=== PATIENT | female | born 1945 | race African-American/Black ===

== ENCOUNTER 2017-01-18 22:40 | Inpatient (IN) | payer OTHER ==
[~2017-01-18] VITALS: Ht 172.7 cm; Wt 126.6 kg
--- NOTE | ~2017-01-18 | EKG ---
[address] [address] [facility] [address] ELECTROCARDIOGRAM REPORT Name: DAMIANMORGAN AZEVEDO Room #: 431-P ADM IN M.R.#: [id number] Admission: 01/19/17 Attend Phys: Paul Osorio Discharge: Date of : 41 Report #: [id number] THIS REPORT FOR: //name// [facility] ED Test Date: 2017-01-18 Test Time: 23:15:53 Pat Name: MORGAN DAMIAN Department: Room: [facility] Gender: F Cable Television Installer: neville : 1945 Requested By: Juan Stark Order Number: [id number] MD: Maldonado Curiel Measurements Intervals [place] Rate: 84 P: 26 [place]: 193 QRS: 18 QRSD: 88 T: -2 QT: 347 QTc: 411 Interpretive Statements Sinus rhythm Abnormal R-wave progression, early transition Compared to ECG 09/14/2016 07:18:52 T-wave abnormality no longer present Electronically Signed On 01-19-2017 7:44:23 CDT by Maldonado Curiel [email or web address] <ELECTRONICALLY SIGNED> By: Maldonado Curiel MD, [facility] 01/19/17 0744 2315 2315 Maldonado Curiel MD, [facility] /EPI
--- NOTE | ~2017-01-18 | HC ---
[facility] [address] [place] [address] CONSULTATION Name: MORGAN DAMIAN Room #: 431-P ADM IN M.R.#: [id number] Admission: 01/19/17 Attend Phys: Daniel Cade MD Discharge: Date of : 41 Report #: [id number] THIS REPORT FOR: //name// CC: Dr. Mary Villafana MD REASON FOR CONSULTATION: Elevated total protein. 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 According to the patient it did not show much of anything, so I do not know exactly what that means. She had been followed and I believe that protein was found to have been elevated, but because of painful bone marrow biopsy in the past had declined further evaluation. At that time, she was not sure if she would take chemotherapy, she had several friends that have had difficulties with that. Recently, she had been in the hospital here, had been home, was getting weakened and then came back up here for reevaluation. The patient at this time says she has rare headache. 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 She gets around at home though is quite slow and weakened. Her washing machine is on a differentr level of her house, she has someone help with her washing . She had been trending down, plans to move back to [place]. No new constipation or diarrhea. She said that she tried losing weight. She thinks she had lost maybe 30 pounds, but she is not sure. No skin rashes. No ankle swelling. PAST MEDICAL HISTORY: Notable for what may have been an MGUS, history of gastric ulcer, hypertension, B12 deficiency, Macias's palsy question, hyperlipidemia, Alport syndrome, also eye surgery for retinal detachment, thyroid nodule, laparoscopic cholecystectomy, the bone marrow biopsy as mentioned before. ALLERGIES: She has had trouble with the PENICILLIN before. FAMILY HISTORY: Her mother and father said like the mother had a stroke at an older age, two brothers, 1 had a heart attack, one sister, two children sounds like they are both overweight, may be one has diabetes. SOCIAL HISTORY: As I mentioned, the patient had worked in finance and accounting, at [employer] for about 30 years, enjoyed her work down there. I do not believe she is a smoker or drinker, but we will have to check. [address] [address] CONSULTATION Name: MORGAN DAMIAN Room #: 431-P [facility] IN .R.#: [id number] Admission: 01/19/17 Attend Phys: Daniel Cade MD Discharge: Date of : 41 Report #: [id number] LABORATORY DATA: Here lab shows that her potassium is 3.2, BUN 22, creatinine 1.6, today's is pending post-hydration. Liver functions normal. Calcium had been 12.5, was 10.9 here, had been 8.7 back in August, magnesium low at 1.3, total protein had been 12.7, back in August had been 8.5, albumin 2.5. Iron levels are ordered and pending. Serum protein electrophoresis ordered and pending. White count on admission here was 8, hemoglobin 9.7, had been 10.9 back in August, 12.3 back in early August, MCV 91.8, stable, RDW 15. Platelet 144, had been about this range back in August. Differential nonacute. Note that retic quantitative IgA, IgG, IgM are pending. SIFE is ordered and pending, ferritin is pending; B12 and folate are pending, intact PTH pending, vitamin D pending, serum free light chain ratio pending. Urine does show 1+ protein. Note that I also ordered for a spot urine creatinine to protein ratio. RADIOLOGIC STUDIES: Include a CT head with contrast done back in August that did not reveal any lytic changes. The patient reports a recent MRI that did not show any marrow, but that it did show some nonspecific white matter changes. CT abdomen and pelvis back in August showed mural thickening, no bony lesions described. ____ MGUS, skeletal survey has been ordered. MEDICATIONS: At this time, currently include calcium carbonate daily, loratadine 10 mg daily, losartan 50 mg daily, famotidine 20 b.i.d., metoprolol 100 daily, aspirin 81 daily, vitamin E 400 daily, amlodipine 10 daily, ceftriaxone 1 gram daily, Zofran p.r.n., IV fluids at an appropriate rate. PHYSICAL EXAMINATION: VITAL SIGNS: Height is 5 feet 8, 172.7 cm, weight 279.9 pounds, 162.96 kilograms. Blood pressure is 141/70, O2 sat 97% on room air, respirations 23, pulse 89, afebrile. MOOD: The patient is alert and pleasant and conversant. NEUROLOGIC: The patient does have some slight left facial drooping and trouble speaking, though she cannot and she states her tongue moves a little bit not off to the side, mostly drips to the left. Oropharynx clear. LYMPHATICS: No enlarged lymph nodes in the supraclavicular, cervical, axillary or inguinal region. ABDOMEN: Obese. EXTREMITIES: Maybe has trace edema. ASSESSMENT AND PLAN: 1. MGUS protein with recent total protein increase. I have talked with the patient, she is agreeable with bone marrow biopsy with conscious sedation; we will order this. We will also check skeletal survey. We will also check serum free light chain ratio, SIFE another test to assess paraproteinemia quantity. 2. Anemia. We will check iron, erythropoietin, await bone marrow results. 3. Hypertension meds. [address] [address] CONSULTATION Name: MORGAN DAMIAN Room #: 431-P [facility] IN M.R.#: [id number] Admission: 01/19/17 Attend Phys: Daniel Cade MD Discharge: Date of : 41 Report #: [id number] 4. Hypercalcemia, hydration, will also give Aredia. 5. Lipids may need to be on statins. 6. Speech pattern difficulty and neurologic event. It sounds like it has been stable for about a year though the patient says it comes and goes. We will defer to others. <ELECTRONICALLY SIGNED> By: Nicho Haji MD 01/20/17 0714 0935 Nicho Haji MD /nt
--- NOTE | ~2017-01-18 | H ---
[facility] [address] [place] [address] HISTORY AND PHYSICAL Name: MORGAN DAMIAN Room #: 431-P [facility] IN M.R.#: [id number] Admission: 01/19/17 Attend Phys: Daniel Cade MD Discharge: 01/21/17 Date of : 41 Report #: [id number] THIS REPORT FOR: //name// CC: Paul SOLARES DATE OF ADMISSION: 01/19/2017. ATTENDING PHYSICIAN: Dr. Cade. PRIMARY CARE PHYSICIAN: Dr. Nohelia Solares in [place], [place]. CHIEF COMPLAINT: Weakness. HISTORY OF PRESENT ILLNESS: The patient is a 71-year-old -[place] female who was brought in to the ER by her son with complaints of generalized weakness as well as dizziness, nausea, and near fainting She was also reporting some white vaginal discharge, she was evaluated in the ER and did have some abnormal labs, but mainly she was not felt safe to discharge to home because they do not think she could care for herself and it sounds like she has been living on her own in the [place], [place]. Has had some recent decline and her son went and picked her up today to bring her to [place] to be evaluated here as a second opinion after recent hospitalization at [facility] but also to end up getting her placed in a assisted here and recent records from [facility] do show that she has had some recent lab changes including anemia. According to their notes, she has positive M spike on a prior evaluation. She has had a bone marrow biopsy in 2008 and was told she does not have any cancer after these recent blood changes, they did recommend repeating to bone marrow biopsy. She has told them at that time, she did not want to have it done because it hurt too bad last time and that she likely would not undergoing any chemotherapy if she did have cancer any way, she is now more agreeable to have this done. She is currently resting comfortably in no acute distress. PAST MEDICAL HISTORY: Anemia, B12 deficiency, gastric ulcer, hypertension, hyperlipidemia, Macias's palsy, and Alport syndrome. PAST SURGICAL HISTORY: Eye surgery for retinal detachment, thyroid nodule removal, and laparoscopic cholecystectomy, bone marrow biopsy. ALLERGIES: PENICILLIN, UNKNOWN REACTION. HOME MEDICATIONS: Cetirizine 10 mg p.o. daily p.r.n., metoprolol 100 mg daily, amlodipine 10 mg daily, losartan 50 mg daily, aspirin 81 mg daily, calcium with vitamin D 1 tab daily, Flonase 2 sprays daily, ranitidine 150 mg b.i.d., and vitamin E 400 units daily. [address] [address] HISTORY AND PHYSICAL Name: MORGAN DAMIAN Room #: 431-P [facility] IN M.R.#: [id number] Admission: 01/19/17 Attend Phys: Daniel Cade MD Discharge: 01/21/17 Date of : 41 Report #: [id number] SOCIAL HISTORY: The patient had been living alone and [place], [place]. She is a . She is a never smoker, denies any alcohol use. After her recent hospitalization at [facility] she has been using home health for physical therapy and has been getting around using a cane or a walker. FAMILY HISTORY: Negative for any cancers, her mother had stroke. REVIEW OF SYSTEMS: The patient does report that she has had blood in her urine, almost all of her life and related to her history of Alport syndrome. She as far as we know her anemia is recent she was just here for her gallbladder surgery in August and had a hemoglobin at that time was 10.9, but it was normal in 2005 according to [facility] records, her creatinine in August was 1.1 and her calcium level in August was 8.7. She denies any history of coronary artery disease. She denies any recent chest pain or shortness of breath. Denies any history of diabetes. All other 12-point review of systems was reviewed with the patient, otherwise negative unless stated in the HPI. PHYSICAL EXAMINATION: GENERAL: The patient is an alert, obese female in no acute distress. VITAL SIGNS: Temperature is 37.0, heart rate 93, respirations 16, blood pressure is 128/93, oxygen 98% on room air. HEENT: PERRLA. Sclerae is nonicteric. She does have right-sided facial droop. Oral mucosa is pink and moist. NECK: Supple, no JVD noted. CARDIOVASCULAR: Normal S1, S2. No murmurs, rubs or gallops. RESPIRATORY: Breath sounds are clear bilaterally, diminished in both bases. Breathing is nonlabored. ABDOMEN: Obese, soft, nontender, nondistended with positive bowel sounds. VASCULAR: Trace bilateral lower extremity edema. Pedal pulses are 2+. NEUROLOGIC: The patient is alert and oriented x 3. Speech is clear. She does have the right-sided facial droop which causes some dysarthria, but her speech is still easily to understand. Muscle strength is 5/5 in all 4 extremities. No focal weakness noted. I did not have her ambulate. LABORATORY DATA AND DIAGNOSTICS: WBC is 8.0, hemoglobin 9.7, platelets 144. Sodium 135, potassium 3.2, BUN 22, creatinine 1.6, glucose 94. Magnesium 1.3. LFTs are within normal limits. Troponins negative, protein levels 12.7 and albumin is 2.5. UA showed 3+ blood, 2+ leukocyte esterase, few wbc's and moderate bacteria. CT of the head shows mild atrophy and minimally microvascular changes, no acute intracranial hemorrhage, mass affect or midline shift, no growth hydrocephalus and was negative. ASSESSMENT AND PLAN: 1. Generalized weakness. The patient does have multiple lab abnormalities which may be contributing to her weakness. She does have hypercalcemia. Actually her [facility] [address] [place] [place] [address] HISTORY AND PHYSICAL Name: MORGAN DAMIAN Room #: 431-P [facility] IN M.R.#: [id number] Admission: 01/19/17 Attend Phys: Daniel Cade MD Discharge: 01/21/17 Date of : 41 Report #: [id number] corrected calcium is 12.1. She also has elevated protein and anemia with some acute kidney injury. This is all concerning for underlying blood disorder with possibly multiple myeloma. She does see me she does have known . We will go ahead and consult on oncology for possible bone marrow biopsy to further evaluate. We will go ahead and check SPEP and UPEP. She is going to have a bone marrow biopsy at this time. Check PTH level as well as a vitamin D and a B12, TSH levels. 2. Urinary tract infection. This also may be contributing her weakness. Urine will be sent for culture. We will start Rocephin. 3. Hypokalemia, hypomagnesemia. This has been replaced. Follow labs. 4. Acute kidney injury. Her last known creatinine was 1.1 in August. We will gently hydrate and follow labs. 5. Dizziness and near syncope may be related to UTI versus underlying blood disorder. CT of the head was negative. 6. Deep venous thrombosis prophylaxis, place sequential compression devices. We will continue to follow the patient closely throughout the hospitalization and make changes based on clinical status. <ELECTRONICALLY SIGNED> By: WENDY Serrano 01/23/17 0604 0655 0756 WENDY Serrano /nt
--- NOTE | ~2017-01-18 | S ---
[facility] [address] [place] [address] SURGICAL PATH RPT PROCEDURE Name: MORGAN DAMIAN Room #: 431-P [facility] IN .R.#: [id number] Admission: 01/19/17 Date of : 41 Discharge: 01/21/17 Report #: [id number] Path Case #: [id number] PATHOLOGY REPORT COLLECTION DATE: 01/19/2017 RECEIVED DATE: 01/19/2017 SUBMITTING PHYS: Dr. Daniel Cade OTHER PHYS: Dr. Nicho Haji SPECIMEN(S) RECEIVED: A.Bone marrow, biopsy B.Bone marrow, clot and/or particle prep C.Bone marrow, aspirate smears D.Peripheral smear * * * * * * * * * * * * FINAL DIAGNOSIS: Bone marrow aspirate, biopsy, cell clot and peripheral blood: - Peripheral blood with moderate normocytic anemia and prominent rouleaux. - Hypercellular bone marrow with diffuse involvement by a plasma cell dyscrasia (90% kappa restricted plasma cells by immunohistochemical staining). See comment. SYNOPTIC CANCER STAGING REPORT Tumor Site: Bone marrow SPECIMEN Specimen: Peripheral blood smear Bone marrow aspiration Bone marrow aspirate clot (cell block) Bone marrow core (trephine) biopsy Bone marrow core touch preparation (imprint) Procedure: Aspiration Aspiration Site: Not specified Biopsy Biopsy Site: Not specified TUMOR Histologic Type (Based on the 2008 WHO Classification): Mature B-cell Neoplasms Other: plasma cell dyscrasia SPECIAL STUDIES Immunophenotyping (flow cytometry and / or immunohistochemistry): Performed, see separate report: flow cytometry [facility] [id number] Cytogenetic Studies: Performed, see separate report: [facility] [id number] [address] [address] SURGICAL PATH RPT PROCEDURE Name: MORGAN DAMIAN Room #: 431-P [facility] IN [facility]#: [id number] Admission: 01/19/17 Date of : 41 Discharge: 01/21/17 Report #: [id number] Path Case #: [id number] Fluorescence in situ Hybridization: Performed, see separate report: [facility] [id number] COMMENT: Overall, the bone marrow is hypercellular for the patient's age with diffuse interstitial involvement by plasma cell dyscrasia. There are approximately 90% kappa restricted plasma cells by immunohistochemical staining. Correlation with clinical history, additional laboratory data and radiographic findings is required to determine the extent of the disease process and to exclude the possibility of a plasmacytoma. Correlation with cytogenetics and FISH analysis is also recommended. A Congo red stain is pending and will be reported as an addendum. PATHOLOGIST: Roxanna Mcgregor M.D. REPORT ELECTRONICALLY SIGNED BY: Roxanna Mcgregor M.D. DATE/TIME: 01/24/2017 22:34 * * * * * * * * * * * * MICROSCOPIC DESCRIPTION: CBC data (01/19/2017): WBC 8,000/uL, RBC 3.17, hemoglobin 9.7 g/dL, hematocrit 29.1%, MCV 91.8 fL, MCH 30.5 pg, MCHC 33.2 g/dL, RDW 15.1%, and platelet count 144,000/uL. Manual white blood cell differential: segs 38%, lymphs 51%, monos 11%. Peripheral Blood Smear: Cytomorphological examination of the Cedeño's stained peripheral blood smear confirms the provided data. Red blood cells show moderate normocytic anemia with mild anisopoikilocytosis. No significant poikilocytosis is identified. Rouleaux is noted. White blood cells are predominantly lymphocytes that are small, round, and mature appearing with condensed chromatin and scant cytoplasm with admixed large granular lymphocytes. While occasional lymphocytes appear plasmacytoid, no definitive plasma cells are seen on scanning. Granulocytes are predominantly segmented neutrophils and are without significant dyspoiesis or significant left shift. Monocytes are mature. Platelets are adequate in number and mainly normal in morphology with rare larger platelets noted. Aspirate Smears: Cytomorphological examination of the Cedeño's stained aspirate smears and touch imprints show no intact spicules present. Numerous plasma cells are identified. Background red blood cells show rouleaux. The myeloid to erythroid ratio, myeloid maturation, and erythroid maturation cannot be accurately evaluated. In a 300 cell differential, there are less than 1% blasts (no Pat rods are seen), 14% more differentiated myeloids, 3% erythroid precursors, 19% lymphocytes and 64% plasma cells. Only a rare mainly normal megakaryocyte is noted on scanning. No lymphoid aggregates or [facility] [address] [place] [address] SURGICAL PATH RPT PROCEDURE Name: MORGAN DAMIAN Room #: 431-P [facility] IN M.R.#: [id number] Admission: 01/19/17 Date of : 41 Discharge: 01/21/17 Report #: [id number] Path Case #: [id number] markedly atypical lymphoid cells are identified. Plasma cells are atypical with variable cell sizes, scant deeply basophilic cytoplasm and variably condensed nuclear chromatin. Iron stain of the aspirate smear shows 0/4+ iron positivity. No ringed sideroblasts are identified. Core Biopsy and Cell Clot: The decalcified bone marrow core biopsy is adequate. Significant aspiration artifact is noted. The bone marrow is hypercellular with an overall cellularity of approximately 80%. The bone marrow is diffusely infiltrated by atypical plasma cells. Background trilineage hematopoiesis is markedly decreased. The myeloid to erythroid ratio, myeloid maturation, and erythroid maturation cannot be accurately evaluated. No lymphoid aggregates or markedly atypical lymphoid cells are seen. Bony trabeculae are unremarkable. Blood vessels are focally thickened. The cell clot shows rare cellular spicules present that are composed predominantly of plasma cells. Iron stain of the cell clot (Block B1) shows 1/4+ iron positivity with rare spicules present. To further quantify and characterize the plasma cells and to identify cells in a tissue architectural context, properly controlled immunohistochemical stains are performed. Block A1: [id number] approximately 90% plasma cells Ulmer and lambda in situ hybridization-plasma cells are kappa restricted Iron-2/4+ iron positivity Congo red-pending. Block B1: [id number] approximately 90% plasma cells Ulmer and lambda in situ hybridization-plasma cells are kappa restricted. Flow Cytometry: Flow cytometric immunophenotypic analysis was performed at [facility]. The diagnosis is "monoclonal plasma cells (15.8% of total cells), consistent with a plasma cell neoplasm". There are 28.4% lymphocytes. Of the lymphocytes, there are 90% T-cells with a CD4/CD8 ratio of 1.1 and no aberrant T-cell antigen expression and 4% polyclonal B-cells (kappa lambda ratio of 1.2). There are 0.5% CD34 positive cells (blasts) that are not increased. There are 15.8% plasma cells that show cytoplasmic kappa light chain restriction and show: CD19 neg, CD38 jacob, CD45 neg, CD56 pos, and CD138 mod. Flow cytometry findings are consistent with a plasma cell neoplasm. No immunophenotypic evidence of a lymphoproliferative disorder, acute leukemia, or increase in blasts, or increased plasma cells is identified. Please see separate flow cytometry report from [facility] ([id number]). Cytogenetics Analysis: Cytogenetic chromosomal analysis is pending at [place] [address] SURGICAL PATH RPT PROCEDURE Name: MORGAN DAMIAN Room #: 431-P DIS IN M.R.#: [id number] Admission: 01/19/17 Date of : 41 Discharge: 01/21/17 Report #: [id number] Path Case #: [id number] [facility] ([id number]). FISH analysis for an MM-MGUS FISH panel is pending at [facility] ([id number]). GROSS PATHOLOGY: A. Received in formalin labeled "Morgan Damian, BM biopsy," is a single needle core of ayon bone, measuring 0.9 cm in length and 0.2 cm in diameter. The specimen is submitted entirely in cassette A1, following decalcification. B. Received in formalin labeled "Morgan Damian, BM aspirate (clot)," is blood coagulum, measuring 2.8 x 2.0 x 0.2 cm in aggregate dimensions. The specimen is submitted entirely in cassette B1. (CAA; 01/20/2017) CLINICAL HISTORY: Anemia, MGUS 71-year-old woman with anemia and monoclonal gammopathy INITIAL CPT CODE(S): A; 08575, 38735, 21566, 95245, 36776, 52564, 78846 B; 02897, 25403, 61698, 29353, 69259 C; 40413, 85740 D; 01190 Professional services performed by [facility] at [address] [place] [address] [address], [place] [address] Technical services performed by [facility] at [address] [place] [address], [address], [place] [address]. Nohelia Villafana [facility] [address] [place] [address] PHONE: [phone] DIRECTOR: Cisco Andrews M.D. * * * END OF REPORT * * *
[~2017-01-18 22:40] MED LIST: 24HOUR ALLERGY10 MG PO; ALEVE220 MG PO; AMLODIPINE BESY10 MG PO; ASPIR 8181 MG PO; CALCIUM 600 +1 EAC1 PO; CHLORTHALIDONE25 MG PO; CIPRO500 MG PO; CORICIDIN HBP1 EAC1 PO; COZAAR 50 MG TA50 M2 PO; FLAGYL500 MG PO; FLUTICASONE PRO16 GM NASAL; IBUPROFEN 200200 M1 PO; TOPROL XL100 MG PO; VITAMIN E400 UNIT PO; ZANTAC 150MG T150 MG PO
[2017-01-18 22:44] VITALS: BP 128/93
[2017-01-19 00:01] LABS: URINE BILIRUBIN NEGATIVE (Negative); URINE BLOOD 3+ (Negative); URINE COLOR YELLOW; URINE GLUCOSE-RANDOM* NEGATIVE (Negative); URINE KETONES NEGATIVE (Negative); URINE LEUKOCYTES-REFLEX 2+ (Negative); URINE PROTEIN (DIPSTICK) 1+ (Negative); URINE SPECIFIC GRAVITY 1.025 (1.003-1.035); URINE UROBILINOGEN 0.2 E.U./dl (0.2-1.0)
[2017-01-19 00:06] LABS: ANION GAP 5 mmol/L (7-16); BUN 22 mg/dL (7-18); CALCIUM 10.9 mg/dL (8.5-10.1); CHLORIDE 102 mmol/L (98-107); CO2 28 mmol/L (21-32); CREATININE 1.6 mg/dL (0.6-1.0); GLUCOSE 94 mg/dL (74-106); POTASSIUM 3.2 mmol/L (3.5-5.1); SODIUM 135 mmol/L (136-145)
[2017-01-19 00:19] LABS: ALBUMIN 2.5 g/dL (3.4-5.0); ALKALINE PHOSPHATASE 40 U/L (46-116); MAGNESIUM 1.3 mg/dL (1.8-2.4); SGOT 14 U/L (15-37); SGPT 9 U/L (30-65); TOTAL BILIRUBIN 0.5 mg/dL (<0.1-1.0); TOTAL PROTEIN 12.7 g/dL (6.4-8.2); TROPONIN-I < 0.04 ng/mL (<0.04-0.07)
[2017-01-19 00:22] LABS: SQUAMOUS >10 Many /LPF (0-3)
[2017-01-19 00:23] LABS: AMORPHOUS URATES Few /LPF (None Seen); CASTS None Seen /LPF (None Seen); URINE RBC 3-10 Few /HPF (0-2); URINE WBC-REFLEX 6-15 Few /HPF (0-5)
[2017-01-19 01:54] LABS: HEMATOCRIT 29.1 % (37.0-47.0); HEMOGLOBIN 9.7 gm/dL (12.0-15.0); MCH 30.5 pg (26.0-34.0); MCHC 33.2 g/dL (28.0-37.0); MCV 91.8 fL (80.0-100.0); RBC 3.17 mil/uL (4.20-5.00); RDW 15.1 % (10.5-14.5)
[2017-01-19 01:57] LABS: MANUAL DIFF YES
[2017-01-19 02:32] VITALS: BP 141/70
[2017-01-19 02:50] LABS: TOTAL CELL COUNT 100
[2017-01-19 02:51] LABS: PLATELET COUNT 144 thou/uL (150-400)
[2017-01-19 10:10] VITALS: BP 132/74
[2017-01-19 11:29] LABS: ABSOLUTE RETIC COUNT 0.0434 10^6/uL; OBSERVED RETIC COUNT 1.59 % (0.6-2.6)
[2017-01-19 11:31] LABS: CALCIUM 9.7 mg/dL (8.5-10.1); CREATININE 1.5 mg/dL (0.6-1.0); MAGNESIUM 1.5 mg/dL (1.8-2.4); POTASSIUM 3.4 mmol/L (3.5-5.1)
[2017-01-19 11:33] LABS: TIBC 172 ug/dL (250-450)
[2017-01-19 11:41] LABS: CALCIUM 9.9 mg/dL (8.5-10.1); CREATININE 1.5 mg/dL (0.6-1.0); PHOSPHORUS 4.5 mg/dL (2.5-4.9)
[2017-01-19 11:48] LABS: FOLIC ACID 4.7 ng/mL (8.6-58.9)
[2017-01-19 12:05] LABS: TSH 1.396 uIU/mL (0.358-3.740)
[2017-01-19 12:15] VITALS: BP 131/73
[2017-01-19 12:36] LABS: % SATURATION 194 % (20-39); IRON 334 ug/dL (50-170); UIBC -162 ug/dL
[2017-01-19 15:35] VITALS: BP 128/79
[2017-01-19 18:30] VITALS: BP 145/85
[2017-01-19 20:00] VITALS: BP 130/74
[2017-01-19 21:07] LABS: IgA < 50 mg/dL (64-422); IgG 7297 mg/dL (700-1600); IgM 8 mg/dL (26-217)
[2017-01-20 03:15] LABS: URINE CREATININE-RANDOM* 80.8 mg/dL (Not Estab.); URINE PROTEIN-RANDOM* 31.2 mg/dL (Not Estab.)
[2017-01-20 07:56] VITALS: BP 146/101
[2017-01-20 12:08] LABS: ERYTHROPOIETIN 53.4 mIU/mL (2.6-18.5)
[2017-01-20 12:25] VITALS: BP 146/101
[2017-01-20 15:06] LABS: KAPPA FREE LIGHT CHAINS 283.9 mg/L (3.30-19.40); KAPPA/LAMBDA RATIO 33.13 (0.26-1.65); LAMBDA FREE LIGHT CHAINS 8.57 mg/L (5.71-26.30)
[2017-01-20 16:21] VITALS: BP 129/64
[2017-01-20 20:00] VITALS: BP 123/70
[2017-01-21 04:31] VITALS: BP 101/75
[2017-01-21 07:34] LABS: ALBUMIN 2.2 g/dL (3.4-5.0); CALCIUM 9.4 mg/dL (8.5-10.1); CREATININE 1.5 mg/dL (0.6-1.0); POTASSIUM 3.8 mmol/L (3.5-5.1); TOTAL BILIRUBIN 0.3 mg/dL (<0.1-1.0); TOTAL PROTEIN 11.2 g/dL (6.4-8.2)
[2017-01-21 08:06] VITALS: BP 117/64
[2017-01-21] MEDS ORDERED: CEFUROXIME500 MG PO (09:15)
[2017-01-23 18:06] LABS: URINE PROTEIN (MG/DL) 33.6 mg/dL (Not Estab.)
[2017-01-24 07:09] LABS: A/G RATIO 0.4 (0.7-1.7); ALBUMIN 3.4 g/dL (2.9-4.4); ALPHA 1 0.3 g/dL (0.0-0.4); ALPHA 2 0.8 g/dL (0.4-1.0); BETA 1.2 g/dL (0.7-1.3); GAMMA 5.6 g/dL (0.4-1.8); M-SPIKE 4.3 g/dL (Not Observed)
== END 2017-01-21 11:00 | disposition home health service (06) | DRG 814 ==
LOC: ER 22:40 → EROBS 01-19 01:52 → 4E 01-19 01:52
PROVIDERS: Emergency Medicine; Hospitalist; Internal Medicine Hematology & Oncology; Nurse Practitioner Acute Care
PROC: 07DR3ZX Extraction of Iliac Bone Marrow, Percutaneous Approach, Diagnostic (ICD-10-PCS; principal; 2017-01-19)
DX: D47.2 Monoclonal gammopathy (principal); E43 Unspecified severe protein-calorie malnutrition; N17.9 Acute kidney failure, unspecified; N39.0 Urinary tract infection, site not specified; Q87.81 Alport syndrome; E78.5 Hyperlipidemia, unspecified; I10 Essential (primary) hypertension; E87.6 Hypokalemia; Z60.2 Problems related to living alone; E83.42 Hypomagnesemia; D64.9 Anemia, unspecified; E83.52 Hypercalcemia; M89.9 Disorder of bone, unspecified; Z90.49 Acquired absence of other specified parts of digestive tract; Z79.82 Long term (current) use of aspirin; Z79.899 Other long term (current) drug therapy; Z88.0 Allergy status to penicillin; Z82.3 Family history of stroke; Z82.49 Family history of ischemic heart disease and other diseases of the circulatory system
CPT/HCPCS: 10183

== ENCOUNTER 2017-01-25 00:41 | Emergency (ER) | payer OTHER ==
[~2017-01-25] VITALS: Ht 172.7 cm; Wt 124.3 kg
--- NOTE | ~2017-01-25 | EKG ---
[address] [address] ELECTROCARDIOGRAM REPORT Name: MORGAN DAMIAN Room #: [facility].#: [id number] Admission: Attend Phys: Discharge: Date of : 41 Report #: [id number] THIS REPORT FOR: //name// [facility] ED Test Date: 2017-01-25 Test Time: 00:50:08 Pat Name: MORGAN DAMIAN Department: Room: Gender: F Brine Supervisor: DEAN : 1945 Requested By: Kyra Smith Order Number: [id number] MD: Measurements Intervals [place] Rate: 74 P: 41 AK: 200 QRS: 30 QRSD: 102 T: 5 QT: 397 QTc: 441 Interpretive Statements Sinus rhythm Borderline T abnormalities, anterior leads Compared to ECG 01/18/2017 23:15:53 T-wave abnormality now present [email or web address] By: 0050 0050 Mikala Bach MD /EPI
[~2017-01-25 00:41] MED LIST changes: +CEFUROXIME500 MG PO
[2017-01-25 01:03] LABS: HEMATOCRIT 25.3 % (37.0-47.0); HEMOGLOBIN 8.5 gm/dL (12.0-15.0); MCH 30.8 pg (26.0-34.0); MCHC 33.7 g/dL (28.0-37.0); MCV 91.4 fL (80.0-100.0); PLATELET COUNT 203 thou/uL (150-400); RBC 2.77 mil/uL (4.20-5.00); RDW 15.2 % (10.5-14.5); WBC 5.6 thou/uL (4.0-11.0)
[2017-01-25 01:04] LABS: MANUAL DIFF YES
[2017-01-25 01:07] LABS: ANION GAP 5 mmol/L (7-16); BUN 18 mg/dL (7-18); CALCIUM 8.3 mg/dL (8.5-10.1); CHLORIDE 102 mmol/L (98-107); CO2 25 mmol/L (21-32); CREATININE 1.3 mg/dL (0.6-1.0); GLUCOSE 92 mg/dL (74-106); SODIUM 132 mmol/L (136-145)
[2017-01-25 01:08] LABS: POTASSIUM 3.7 mmol/L (3.5-5.1)
[2017-01-25 01:15] LABS: TROPONIN-I < 0.04 ng/mL (<0.04-0.07)
[2017-01-25 01:37] LABS: ABSOLUTE NEUTROPHILS 2.4 thou/uL (1.4-8.2); ATYPICAL LYMPHS 2 %; NUCLEATED RBCS 2 /100WBC; TOTAL CELL COUNT 100
== END 2017-01-25 02:24 | disposition home or self-care (01) ==
LOC: ER 00:41
PROVIDERS: Emergency Medicine
DX: R06.00 Dyspnea, unspecified (principal); D64.89 Other specified anemias; I10 Essential (primary) hypertension; Z98.890 Other specified postprocedural states; Z90.49 Acquired absence of other specified parts of digestive tract; Z86.69 Personal history of other diseases of the nervous system and sense organs; Z88.0 Allergy status to penicillin; Z79.82 Long term (current) use of aspirin

== ENCOUNTER 2017-03-02 11:12 | Emergency (ER) | payer OTHER ==
[~2017-03-02] VITALS: Ht 172.7 cm; Wt 117.9 kg
--- NOTE | ~2017-03-02 | EKG ---
[place] [address] [facility] [place] [address] ELECTROCARDIOGRAM REPORT Name: MORGAN DAMIAN Room #: [facility]#: [id number] Admission: 03/02/17 Attend Phys: Discharge: 03/02/17 Date of : 41 Report #: [id number] THIS REPORT FOR: //name// [facility] ED Test Date: 2017-03-02 Test Time: 11:22:26 Pat Name: MOGRAN DAMIAN Department: Room: Gender: F Neighborhood Aide: Wen GOMES : 1945 Requested By: Heriberto Gallardo Order Number: [id number] MD: Maldonado Curiel Measurements Intervals [place] Rate: 66 P: 28 LA: 217 QRS: 9 QRSD: 88 T: -5 QT: 401 QTc: 421 Interpretive Statements Sinus rhythm Borderline prolonged LA interval LVH by voltage Borderline T abnormalities Compared to ECG 01/25/2017 00:50:08 No significant change was found Electronically Signed On 03-03-2017 8:17:58 CDT by Maldonado Curiel [email or web address] <ELECTRONICALLY SIGNED> By: Maldonado Curiel MD, [facility] 03/03/1717 21 21 Maldonado Curiel MD, [facility] /EPI
[2017-03-02 11:31] LABS: HEMATOCRIT 28.2 % (37.0-47.0); HEMOGLOBIN 9.3 gm/dL (12.0-15.0); WBC 6.7 thou/uL (4.0-11.0)
[2017-03-02 11:39] LABS: ANION GAP 7 mmol/L (7-16); BUN 17 mg/dL (7-18); CALCIUM 8.6 mg/dL (8.5-10.1); CHLORIDE 104 mmol/L (98-107); CO2 25 mmol/L (21-32); CREATININE 1.2 mg/dL (0.6-1.0); GLUCOSE 101 mg/dL (74-106); POTASSIUM 3.3 mmol/L (3.5-5.1); SODIUM 136 mmol/L (136-145)
[2017-03-02 11:41] LABS: MCH 30.8 pg (26.0-34.0); MCHC 33.1 g/dL (28.0-37.0); PLATELET COUNT 205 thou/uL (150-400); RBC 3.03 mil/uL (4.20-5.00); RDW 16.3 % (10.5-14.5)
[2017-03-02 11:43] LABS: MANUAL DIFF YES
[2017-03-02 11:53] LABS: ALBUMIN 2.1 g/dL (3.4-5.0); ALKALINE PHOSPHATASE 40 U/L (46-116); MAGNESIUM 1.7 mg/dL (1.8-2.4); NT-PRO BRAIN NAT PEPTIDE 191 pg/mL (<300); SGOT 17 U/L (15-37); SGPT 14 U/L (30-65); TOTAL BILIRUBIN 0.4 mg/dL (<0.1-1.0); TOTAL PROTEIN 10.4 g/dL (6.4-8.2); TROPONIN-I < 0.04 ng/mL (<0.04-0.07)
[2017-03-02 12:31] LABS: URINE BILIRUBIN NEGATIVE (Negative); URINE BLOOD 2+ (Negative); URINE COLOR YELLOW; URINE GLUCOSE-RANDOM* NEGATIVE (Negative); URINE KETONES NEGATIVE (Negative); URINE LEUKOCYTES-REFLEX 1+ (Negative); URINE PROTEIN (DIPSTICK) NEGATIVE (Negative); URINE SPECIFIC GRAVITY 1.015 (1.003-1.035); URINE UROBILINOGEN 0.2 E.U./dl (0.2-1.0)
[2017-03-02 12:34] LABS: ABSOLUTE NEUTROPHILS 1.5 thou/uL (1.4-8.2); METAMYELOCYTES 3 %; TOTAL CELL COUNT 100
[2017-03-02 12:35] LABS: ANISOCYTOSIS 1+; ATYPICAL LYMPHS 2 %
[2017-03-02 12:43] LABS: SQUAMOUS None Seen /LPF (0-3)
[2017-03-02 12:44] LABS: CASTS None Seen /LPF (None Seen); CRYSTALS None Seen /LPF (None Seen); URINE WBC-REFLEX 6-15 Few /HPF (0-5)
[2017-03-02] MEDS ORDERED: KEFLEX500 MG PO (13:38)
[2017-03-02] MEDS ORDERED: ZOFRAN ODT8 MG PO (13:41)
== END 2017-03-02 15:14 | disposition home or self-care (01) ==
LOC: ER 11:12
PROVIDERS: Emergency Medicine
DX: R55 Syncope and collapse (principal); E87.6 Hypokalemia; D64.9 Anemia, unspecified; R11.2 Nausea with vomiting, unspecified; N39.0 Urinary tract infection, site not specified; M19.90 Unspecified osteoarthritis, unspecified site; I10 Essential (primary) hypertension; Z90.49 Acquired absence of other specified parts of digestive tract; Z98.890 Other specified postprocedural states; Z88.0 Allergy status to penicillin

== ENCOUNTER 2017-04-05 12:02 | Inpatient (IN) | payer OTHER ==
[~2017-04-05] VITALS: Ht 172.7 cm; Wt 115.4 kg
--- NOTE | ~2017-04-05 | EKG ---
[address] [place] [address] ELECTROCARDIOGRAM REPORT Name: RICKIEMORGAN Cecelia Room #: 448-P ADM IN M.R.#: [id number] Admission: 04/06/17 Attend Phys: Daniel Cade MD Discharge: Date of : 41 Report #: [id number] THIS REPORT FOR: //name// [facility] ED Test Date: 2017-04-05 Test Time: 12:40:50 Pat Name: MORGAN DAMIAN Department: Room: [facility] Gender: F Communication Center Coordinator: FELIPE : 1945 Requested By: Kyra Smith Order Number: [id number] MD: Maldonado Curiel Measurements Intervals [place] Rate: 76 P: -4 VA: 207 QRS: 19 QRSD: 84 T: -3 QT: 382 QTc: 430 Interpretive Statements Sinus rhythm Abnormal R-wave progression, early transition Compared to ECG 03/02/2017 11:22:26 T-wave abnormality no longer present Electronically Signed On 04-06-2017 17:24:23 CDT by Maldonado Curiel [email or web address] <ELECTRONICALLY SIGNED> By: Maldonado Curiel MD, FACC 04/06/17 1724 1240 1240 Maldonado Curiel MD, [facility] /EPI
--- NOTE | ~2017-04-05 | HC ---
[facility] [address] [place] [address] CONSULTATION Name: MORGAN DAMIAN Room #: 448-P ADM IN M.R.#: [id number] Admission: 04/06/17 Attend Phys: Daniel Cade MD Discharge: Date of : 41 Report #: [id number] THIS REPORT FOR: //name// CC: FAM unknown Daniel Cade DATE OF SERVICE: 04/06/2017 ATTENDING PHYSICIAN: Nicho Haji MD CREDIT CARD CONTROL CLERK: Zaid Fernandez, PhD CLINICAL PRESENTATION: The patient is a 71-year-old -[place] female admitted to the [facility] for evaluation and treatment of rapid heart rate and dizziness. She presented with fatigue and weakness. The patient carries diagnoses of acute renal failure, anemia, arthritis, cholecystitis with cholelithiasis, dehydration, hypocalcemia, hypokalemia, hypomagnesemia, and thrombocytopenia. She has a history of multiple myeloma. A complete description of her medical condition, history and medications can be found in her medical records. Neuropsychological consultation was requested to provide assistance in the assessment of cognitive and emotional status and to provide recommendations and services. Prior to this most recent medical event, she was living with the assistance of her son in his home. The patient has 2 children. She is retired in the . She is a high school graduate. She does not report a prior history of treatment for depression or anxiety. She indicates that the cancer was diagnosed in December of 2016. Bone metastasis is also reported. TECHNIQUES UTILIZED: Clinical interview, review of medical records, staff consultation and behavioral observation, MMSE 2 -- brief version. EXAMINATION FINDINGS: The patient was alert and cooperative with the assessment. She described a brief period of amnesia surrounding her hospitalization. Subjective feelings of anxiety and depression are described. Difficulty with sleep, appetite and energy level are reported. Immediate short-term memory is described as reduced. The patient indicates feelings of frustration regarding increased dependency on others and anxiety about her medical well being. Fatigue and lethargy are her primary symptoms. Her performance on the MMSE 2 brief version suggests mild cognitive disorder. Her score was 13 of 16. She was 3/3 for initial registration, 5/5 for orientation to time, 4/[address] and 1/3 for immediate recall of 3 items after a brief time delay and distraction. Primarily depressed mood associated with her medical well being and anxiety about increased dependency is affecting her overall adjustment. [address] [address] CONSULTATION Name: MORGAN DAMIAN Room #: 448-P [facility] IN M.R.#: [id number] Admission: 04/06/17 Attend Phys: Daniel Cade MD Discharge: Date of : 41 Report #: [id number] DIAGNOSTIC IMPRESSION: 1. Adjustment disorder with anxiety and depressed mood. 2. 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 RECOMMENDATIONS: Psychological support will help in her overall adjustment. I discussed specific coping strategies to assist her ability to accept current medical event with increasing self-confidence and optimism about recovery. She would also benefit from the use of an antidepressant medication, example Lexapro. The patient will likely benefit from psychological counseling upon discharge. Continued verbal praise and compliments about her participation in increased activity. Consider rehabilitation consult for physical therapy. Thank you very much for allowing me to provide the consultation on this patient. By: [id number] Ziad Fernandez, PhD /nt
[~2017-04-05 12:02] MED LIST changes: +KEFLEX500 MG PO; +ZOFRAN ODT8 MG PO
[2017-04-05 12:19] VITALS: BP 149/75
[2017-04-05] MEDS ORDERED: CHLORTHALIDONE25 MG PO (13:16)
[2017-04-05] MEDS ORDERED: TESSALON PERLE100 MG PO (13:16)
[2017-04-05] MEDS ORDERED: ZETIA10 MG PO (13:17)
[2017-04-05] MEDS ORDERED: IBUPROFEN 400400 M2 PO (13:18)
[2017-04-05 13:46] LABS: HEMATOCRIT 27.3 % (37.0-47.0); HEMOGLOBIN 9.1 gm/dL (12.0-15.0); MCH 31.8 pg (26.0-34.0); MCHC 33.2 g/dL (28.0-37.0); MCV 95.7 fL (80.0-100.0); PLATELET COUNT 112 thou/uL (150-400); RBC 2.85 mil/uL (4.20-5.00); RDW 19.5 % (10.5-14.5); WBC 4.6 thou/uL (4.0-11.0)
[2017-04-05 13:52] LABS: MANUAL DIFF YES
[2017-04-05 14:26] LABS: ABSOLUTE NEUTROPHILS 1.8 thou/uL (1.4-8.2); PLATELET ESTIMATE SLIGHTLY DECREASED; TOTAL CELL COUNT 100
[2017-04-05 14:29] LABS: ANISOCYTOSIS 2+
[2017-04-05 14:30] LABS: POLYCHROMASIA 1+
[2017-04-05 14:50] LABS: CALCIUM 8.7 mg/dL (8.5-10.1); CREATININE 1.2 mg/dL (0.6-1.0); POTASSIUM 3.7 mmol/L (3.5-5.1)
[2017-04-05 15:09] LABS: URINE BILIRUBIN NEGATIVE (Negative); URINE BLOOD 1+ (Negative); URINE COLOR YELLOW; URINE GLUCOSE-RANDOM* NEGATIVE (Negative); URINE KETONES NEGATIVE (Negative); URINE NITRITE NEGATIVE (Negative); URINE PROTEIN (DIPSTICK) NEGATIVE (Negative); URINE SPECIFIC GRAVITY <= 1.005 (1.003-1.035); URINE UROBILINOGEN 0.2 E.U./dl (0.2-1.0)
[2017-04-05 15:18] LABS: SQUAMOUS >10 Many /LPF (0-3)
[2017-04-05 15:20] LABS: BACTERIA 1-9 Few /HPF (None Seen); CASTS None Seen /LPF (None Seen); CRYSTALS None Seen /LPF (None Seen); URINE RBC 0-2 Rare /HPF (0-2); URINE WBC 0-5 Rare /HPF (0-5)
[2017-04-05 16:25] VITALS: BP 122/65
[2017-04-05 18:36] VITALS: BP 122/65
[2017-04-05 19:57] VITALS: BP 126/66
[2017-04-06 04:02] VITALS: BP 108/59
[2017-04-06 07:36] VITALS: BP 113/51
[2017-04-06 16:31] VITALS: BP 105/42
[2017-04-06 20:55] VITALS: BP 105/56
[2017-04-07 03:36] VITALS: BP 121/61
[2017-04-07 03:44] LABS: HEMATOCRIT 24.5 % (37.0-47.0); HEMOGLOBIN 8.2 gm/dL (12.0-15.0); MCH 31.9 pg (26.0-34.0); MCHC 33.5 g/dL (28.0-37.0); MCV 95.2 fL (80.0-100.0); PLATELET COUNT 159 thou/uL (150-400); RBC 2.57 mil/uL (4.20-5.00); RDW 19.2 % (10.5-14.5); WBC 4.3 thou/uL (4.0-11.0)
[2017-04-07 04:00] LABS: CALCIUM 8.1 mg/dL (8.5-10.1); MAGNESIUM 1.7 mg/dL (1.8-2.4); POTASSIUM 3.3 mmol/L (3.5-5.1)
[2017-04-07 04:05] LABS: MANUAL DIFF YES
[2017-04-07 07:21] LABS: ABSOLUTE NEUTROPHILS 1.5 thou/uL (1.4-8.2); ATYPICAL LYMPHS 3 %; METAMYELOCYTES 1 %; NUCLEATED RBCS 2 /100WBC; TOTAL CELL COUNT 100
[2017-04-07 07:23] LABS: ANISOCYTOSIS 2+; POLYCHROMASIA OCCASIONAL
[2017-04-07 08:06] VITALS: BP 105/58
[2017-04-07 19:20] VITALS: BP 119/58
[2017-04-08 04:20] VITALS: BP 111/62
[2017-04-08 06:16] LABS: HEMATOCRIT 24.3 % (37.0-47.0); HEMOGLOBIN 8.1 gm/dL (12.0-15.0); MCH 32.1 pg (26.0-34.0); MCHC 33.2 g/dL (28.0-37.0); MCV 96.8 fL (80.0-100.0); PLATELET COUNT 211 thou/uL (150-400); RBC 2.51 mil/uL (4.20-5.00); RDW 18.9 % (10.5-14.5); WBC 4.1 thou/uL (4.0-11.0)
[2017-04-08 06:24] LABS: MANUAL DIFF YES
[2017-04-08 06:26] LABS: CALCIUM 8.7 mg/dL (8.5-10.1); MAGNESIUM 1.9 mg/dL (1.8-2.4); POTASSIUM 3.8 mmol/L (3.5-5.1)
[2017-04-08 07:34] VITALS: BP 107/56
[2017-04-08 08:17] LABS: ABSOLUTE NEUTROPHILS 1.3 thou/uL (1.4-8.2); ATYPICAL LYMPHS 2 %; NUCLEATED RBCS 1 /100WBC; TOTAL CELL COUNT 100
[2017-04-08 08:18] LABS: ANISOCYTOSIS 1+; HYPOCHROMASIA SLIGHT; POIKILOCYTOSIS SLIGHT; POLYCHROMASIA SLIGHT
[2017-04-08 11:25] VITALS: BP 97/49
[2017-04-08 16:10] VITALS: BP 99/47
[2017-04-08 19:23] VITALS: BP 116/64
[2017-04-09 05:53] VITALS: BP 155/83
[2017-04-09 06:49] LABS: HEMATOCRIT 23.5 % (37.0-47.0); HEMOGLOBIN 7.9 gm/dL (12.0-15.0); MCH 32.3 pg (26.0-34.0); MCHC 33.8 g/dL (28.0-37.0); MCV 95.6 fL (80.0-100.0); PLATELET COUNT 241 thou/uL (150-400); RBC 2.45 mil/uL (4.20-5.00); RDW 19.1 % (10.5-14.5); WBC 3.7 thou/uL (4.0-11.0)
[2017-04-09 06:50] LABS: MANUAL DIFF YES
[2017-04-09 07:06] LABS: CALCIUM 8.4 mg/dL (8.5-10.1); POTASSIUM 3.5 mmol/L (3.5-5.1)
[2017-04-09 07:42] VITALS: BP 114/61
[2017-04-09 10:45] LABS: ABSOLUTE NEUTROPHILS 0.9 thou/uL (1.4-8.2); NUCLEATED RBCS 1 /100WBC; TOTAL CELL COUNT 100
[2017-04-09 10:46] LABS: ANISOCYTOSIS 2+; POLYCHROMASIA OCCASIONAL
[2017-04-09 16:00] VITALS: BP 109/52
[2017-04-09 18:36] VITALS: BP 95/50
[2017-04-10 03:31] VITALS: BP 137/56
[2017-04-10 04:45] LABS: HEMOGLOBIN 7.7 gm/dL (12.0-15.0); MCH 32.4 pg (26.0-34.0); MCHC 33.6 g/dL (28.0-37.0); MCV 96.4 fL (80.0-100.0); PLATELET COUNT 249 thou/uL (150-400); RBC 2.38 mil/uL (4.20-5.00); RDW 19.1 % (10.5-14.5); WBC 3.8 thou/uL (4.0-11.0)
[2017-04-10 04:58] LABS: MANUAL DIFF YES
[2017-04-10 04:59] LABS: CALCIUM 8.5 mg/dL (8.5-10.1); POTASSIUM 3.5 mmol/L (3.5-5.1)
[2017-04-10 07:45] VITALS: BP 133/73
[2017-04-10 08:00] VITALS: BP 133/73
[2017-04-10] MEDS ORDERED: ACYCLOVIR 400400 MG PO (08:43)
[2017-04-10 08:57] LABS: ABSOLUTE NEUTROPHILS 1.2 thou/uL (1.4-8.2); NUCLEATED RBCS 1 /100WBC; PLATELET ESTIMATE NORMAL; TOTAL CELL COUNT 100
[2017-04-10 08:58] LABS: ANISOCYTOSIS 1+; HYPOCHROMASIA 2+; POLYCHROMASIA SLIGHT
[2017-04-10 16:07] LABS: A/G RATIO 0.6 (0.7-1.7); ALBUMIN 2.9 g/dL (2.9-4.4); ALPHA 1 0.3 g/dL (0.0-0.4); ALPHA 2 0.5 g/dL (0.4-1.0); GAMMA 2.7 g/dL (0.4-1.8); M-SPIKE 2.3 g/dL (Not Observed)
== END 2017-04-10 15:39 | DRG 841 ==
LOC: ER 12:02 → EROBS 14:31 → 4S 16:21 → 4W 04-07 18:21
PROVIDERS: Emergency Medicine; Family Medicine; Internal Medicine Hematology & Oncology; Registered Nurse
DX: C90.00 Multiple myeloma not having achieved remission (principal); D62 Acute posthemorrhagic anemia; Q87.81 Alport syndrome; I10 Essential (primary) hypertension; D69.6 Thrombocytopenia, unspecified; E78.5 Hyperlipidemia, unspecified; R47.9 Unspecified speech disturbances; G51.0 Bell's palsy; F43.23 Adjustment disorder with mixed anxiety and depressed mood; G31.84 Mild cognitive impairment of uncertain or unknown etiology; D75.9 Disease of blood and blood-forming organs, unspecified; E87.6 Hypokalemia; Z90.49 Acquired absence of other specified parts of digestive tract; Z88.0 Allergy status to penicillin; Z87.440 Personal history of urinary (tract) infections; Z79.82 Long term (current) use of aspirin; Z79.899 Other long term (current) drug therapy; Z85.9 Personal history of malignant neoplasm, unspecified; Z87.11 Personal history of peptic ulcer disease
CPT/HCPCS: 10045; 10100

== ENCOUNTER 2017-06-13 15:43 | Emergency (ER) | payer OTHER ==
[~2017-06-13] VITALS: Ht 172.7 cm; Wt 116.1 kg
[~2017-06-13 15:43] MED LIST changes: +ACYCLOVIR 400400 MG PO; +IBUPROFEN 400400 M2 PO; +TESSALON PERLE100 MG PO; +ZETIA10 MG PO
[2017-06-13 16:08] LABS: URINE BILIRUBIN NEGATIVE (Negative); URINE BLOOD TRACE (Negative); URINE COLOR YELLOW; URINE GLUCOSE-RANDOM* NEGATIVE (Negative); URINE KETONES NEGATIVE (Negative); URINE NITRITE NEGATIVE (Negative); URINE PROTEIN (DIPSTICK) NEGATIVE (Negative); URINE SPECIFIC GRAVITY <= 1.005 (1.003-1.035); URINE UROBILINOGEN 0.2 E.U./dl (0.2-1.0)
[2017-06-13 16:41] LABS: HEMATOCRIT 31.9 % (37.0-47.0); HEMOGLOBIN 10.7 gm/dL (12.0-15.0); MANUAL DIFF YES; MCH 31.7 pg (26.0-34.0); MCHC 33.6 g/dL (28.0-37.0); MCV 94.4 fL (80.0-100.0); PLATELET COUNT 196 thou/uL (150-400); RBC 3.38 mil/uL (4.20-5.00); RDW 17.1 % (10.5-14.5); WBC 3.8 thou/uL (4.0-11.0)
[2017-06-13 17:12] LABS: ABSOLUTE NEUTROPHILS 0.7 thou/uL (1.4-8.2); TOTAL CELL COUNT 100
[2017-06-13 17:13] LABS: ANISOCYTOSIS 1+
[2017-06-13 17:48] LABS: ANION GAP 5 mmol/L (7-16); BUN 4 mg/dL (7-18); CALCIUM 8.6 mg/dL (8.5-10.1); CHLORIDE 105 mmol/L (98-107); CO2 27 mmol/L (21-32); CREATININE 0.8 mg/dL (0.6-1.0); GLUCOSE 85 mg/dL (74-106); POTASSIUM 4.3 mmol/L (3.5-5.1); SODIUM 137 mmol/L (136-145)
[2017-06-13] MEDS ORDERED: LOPERAMIDE2 MG PO (17:52)
[2017-06-13 17:53] LABS: ALBUMIN 2.9 g/dL (3.4-5.0); ALKALINE PHOSPHATASE 32 U/L (46-116); DIRECT BILIRUBIN < 0.1 mg/dL (<0.1-0.3); SGOT 16 U/L (15-37); SGPT 12 U/L (30-65); TOTAL BILIRUBIN 0.6 mg/dL (<0.1-1.0); TOTAL PROTEIN 7.7 g/dL (6.4-8.2)
[2017-06-13] MEDS ORDERED: POTASSIUM20 PO (17:53)
[2017-06-13] MEDS ORDERED: ZOFRAN8 MG PO (17:53)
[2017-06-13] MEDS ORDERED: REVLIMID5 MG PO (17:55)
[2017-06-13] MEDS ORDERED: ZOFRAN ODT4 MG PO (18:50)
[2017-06-13] MEDS ORDERED: PHENERGAN 25 MG25 M1 PO (18:50)
== END 2017-06-13 20:06 | disposition home or self-care (01) ==
LOC: ER 15:43
PROVIDERS: Emergency Medicine
DX: R11.2 Nausea with vomiting, unspecified (principal); R10.31 Right lower quadrant pain; K52.9 Noninfective gastroenteritis and colitis, unspecified; I10 Essential (primary) hypertension; Q87.81 Alport syndrome; G51.0 Bell's palsy; Z86.2 Personal history of diseases of the blood and blood-forming organs and certain disorders involving the immune mechanism; Z90.49 Acquired absence of other specified parts of digestive tract; Z88.0 Allergy status to penicillin